=== PATIENT | female | born 1965 | race Caucasian/White ===

== ENCOUNTER → 2018-11-21 | Outpatient (CLI) | payer BC ==
[2005-03-25 21:00] VITALS: PULSE 74; TEMP 97.2
== END ==
LOC: MC.RAD 10-17 08:45
DX: Z12.31 Encounter for screening mammogram for malignant neoplasm of breast (principal)

== ENCOUNTER → 2019-03-06 | Outpatient (CLI) | payer BC ==
[2005-03-25 21:00] VITALS: PULSE 74; TEMP 97.2
== END ==
LOC: COL.RAD 08:56
DX: R10.11 Right upper quadrant pain (principal)

== ENCOUNTER 2019-09-21 17:16 | Observation (INO) | payer BC ==
[2019-09-21] VITALS (8 sets, daily range): BP systolic 125–144; BP diastolic 52–74; PULSE 52–72; TEMP 97.6–98.1
[~2019-09-21] VITALS: Ht 177.8 cm; Wt 87.5 kg
[2019-09-21] MEDS ORDERED: LEXAPRO 10MG10 MG PO (17:45)
[2019-09-21] MEDS ORDERED: VALTREX 50500 MG/TAB PO (17:46)
--- NOTE | 2019-09-21 18:40 | NUR ---
Patient admitted from admissions to room 321. She is alert & oriented. Dr. Hoyt rounded. Augustina Cam started Iv to Right wrist. Zosyn per orders to gravity. Lr sent to Or, but not started due to incompatibilty with Zosyn. Patient voided, med rec completed. Patient to or with Juaquin for lap appy. Bedside report to [facility]
--- NOTE | 2019-09-21 20:40 | NUR ---
pt arrived to unit from pacu. alert and oriented with vss. had lap appy with 3 lap sites covered with bandaid, all cd&i. family in room with pt. heart and lung sounds normal. bowel sounds hypoactive. IV to R wrist with NS running. Denies needs at this time. Call light within reach, will continue to monitor
--- NOTE | 2019-09-21 21:57 | NUR ---
Pt doing well post-op. VSS. Denies pain but is sleepy. Tolerating ice chips well. Family in room. Denies needs. Call light within reach, will continue to monitor.
[2019-09-22 00:10] VITALS: BP 119/56; PULSE 76; TEMP 98.2
--- NOTE | 2019-09-22 00:13 | NUR ---
Pt got up and ambulated to bathroom with no issues. Voided about 400cc.
[2019-09-22 04:41] VITALS: BP 106/49; PULSE 50; TEMP 97.6
--- NOTE | 2019-09-22 08:00 | NUR ---
Patient in bed resting. Alert and oriented x 3. Shift assessment complete. Lap sites x3 with bandaids, CDI. States she feels a lot better this AM. IV to INT to Right wrist. Patient tolerating diet without difficulties. Patient independent in room. Denies further needs at this time.
[2019-09-22] MEDS ORDERED: NORCO 325 MG-51 TAB PO (08:28)
[2019-09-22 08:30] VITALS: BP 110/57; PULSE 67; TEMP 97.5
--- NOTE | 2019-09-22 08:50 | NUR ---
Dr. Hoyt in to see patient.
--- NOTE | 2019-09-22 09:59 | NUR ---
Discharge education provided to patient and friend. Educated on signs and symptoms of infection and when to call provider. Educated on medication safety. All questions answered. INT to right wrist discontinued, catheter tip intact. Denies pain or further needs at this time. Patient out with surgical staff and friend.
== END 2019-09-22 10:00 | disposition home or self-care (01) ==
LOC: SURG 17:16
PROVIDERS: ADMIT Surgery
DX: K35.80 Unspecified acute appendicitis (principal); Z79.899 Other long term (current) drug therapy; F41.9 Anxiety disorder, unspecified
CPT/HCPCS: G0378; G0379; J0330; J1100; J1885; J2405; J2543; J2704; J2710; J3010; J7120

== ENCOUNTER → 2019-09-21 | Outpatient (CLI) | payer BC ==
[2005-03-25 21:00] VITALS: PULSE 74; TEMP 97.2
[~2019-09-21] MED LIST: LEXAPRO 10MG10 MG PO; NORCO 325 MG-51 TAB PO; VALTREX 50500 MG/TAB PO
[2019-09-21 16:20] LABS: BASO % 0.3 % (0.0-2.0); EOS % 0.6 % (0-4.0); GRAN # 4.6 (1.4-6.5); GRAN % 67.5 % (42.2-75.2); HEMOGLOBIN 11.6 g/dl (12.5-16.0); LYMPH # 1.6 (1.2-3.4); LYMPH % 24.3 % (20.0-51.0); MEAN CELL VOLUME 95 fl (80.0-100.0); MEAN CORPUSCULAR HEMOGLOBIN 33 pg (27.0-31.0); MEAN CORPUSCULAR HGB CONC 34 g/dl (33.0-37.0); MONO # 0.5 (0.1-0.6); PLATELET COUNT 162 K/mm3 (130-400); RED BLOOD COUNT 3.56 M/mm3 (4.10-5.30); REDCELL DISTRIBUTION WIDTH-CV 13.8 % (11.5-14.5)
[2019-09-21 16:28] LABS: HEMATOCRIT 33.7 % (37.0-47.0)
[2019-09-21 16:30] LABS: CALCIUM 9.2 mg/dL (8.4-10.2); CREATININE, serum 0.71 (0.52-1.25); POTASSIUM 3.7 mmol/L (3.4-5.0)
== END ==
LOC: COL.RAD 15:41 → COL.LAB 15:41
PROVIDERS: Family Medicine
DX: K38.8 Other specified diseases of appendix (principal)
CPT/HCPCS: Q9967

== ENCOUNTER → 2020-12-24 | Outpatient (CLI) | payer BC | LOC: MC.RAD 07:52 | DX: Z12.31 Encounter for screening mammogram for malignant neoplasm of breast (principal) ==

== ENCOUNTER → 2020-12-31 | Outpatient (CLI) | payer BC | LOC: MC.RAD 13:00 | DX: R92.0 Mammographic microcalcification found on diagnostic imaging of breast (principal) ==

== ENCOUNTER → 2021-01-14 | Outpatient (CLI) | payer BC | LOC: MC.RAD 08:23 | DX: R92.0 Mammographic microcalcification found on diagnostic imaging of breast (principal) ==

== ENCOUNTER 2021-01-26 06:34 | Day surgery (SDC) | payer BC ==
[2021-01-26] VITALS (7 sets, daily range): BP systolic 112–133; BP diastolic 64–75; PULSE 61–87; TEMP 97.5–97.8
[~2021-01-26] VITALS: Ht 177.8 cm; Wt 83.3 kg
[2021-01-26] MEDS ORDERED: NORCO 325 MG-51 TAB PO (14:29)
--- NOTE | 2021-01-26 15:10 | NUR ---
Patient arrives to [facility] [place] [facility] via cart, accompanied by FIELD RADIO OPERATOR Elaine. She is drowsy, but converses with staff with asked questions. PIV to TKO. Monitoring is applied -VSS and WNL on room air. She has a dry dressing covering her surgical site. The surrounding area is soft, no hematoma noted. She has a AUSTIN drain, bulb suction intact, scant amount of dark red drainage in the bulb. She has been eating ice chips and tolerating. She does not want anything more at this time. Lights are dimmed for comfort/rest and her family is brought to the bedside.
--- NOTE | 2021-01-26 15:30 | NUR ---
Dressing remains clean/dry/intact. AUSTIN drainage remains unchanged. Patient is resting, prefers to stick to ice chips for PO intake at this time. VSS. Denies pain. Will continue to monitor.
--- NOTE | 2021-01-26 15:30 | NUR ---
Dr. Hoyt comes to the bedside and speaks with the patient and her family at this time.
--- NOTE | 2021-01-26 16:00 | NUR ---
Patient is more awake, remains comfortable. Denies pain or needs. Offered and receives water to drink.
--- NOTE | 2021-01-26 16:30 | NUR ---
Patient has ate crackers and drank water. She ambulates to the restroom, voids, and returns to room.
--- NOTE | 2021-01-26 17:10 | NUR ---
Patient has met discharge criteria. PIV is removed with catheter intact and hemostasis achieved. AUSTIN drain instructions are discussed. 20 mL of bloody drainage is emptied from the AUSTIN drain. The family denies questions regarding drain care and is given handouts for care reminders. Other dismissal instructions are discussed. She changes to her clothing independently. She is escorted to the exit via wheelchair by staff. She is discharged to home to the care of her sister, who drives her home in private vehicle at 1710.
== END 2021-01-26 17:10 | disposition home or self-care (01) ==
LOC: SDCO 06:34
DX: C50.412 Malignant neoplasm of upper-outer quadrant of left female breast (principal); C77.3 Secondary and unspecified malignant neoplasm of axilla and upper limb lymph nodes; Z17.0 Estrogen receptor positive status [ER+]
CPT/HCPCS: A4648; A9541; J0690; J1100; J1200; J2175; J2250; J2405; J2704; J3010; J7120; Q9968